=== PATIENT | male | born 2000 | race Caucasian/White ===

== ENCOUNTER 2018-08-25 12:02 | Outpatient (CLI) | payer OTHER, BC ==
--- NOTE | 2018-08-26 01:34 | XRAY Report ---
Reason: STRUCK IN BRIDGE OF NOSE WITH TENNIS RAQUET Procedure Date: 08/25/2018 Accession Number: [id number] / [id number] Procedure: XR - Facial Bones Limited CPT Code: FULL RESULT: EXAM: NASAL BONES RADIOGRAPHY EXAM DATE: 08/25/2018 12:52 PM. CLINICAL HISTORY: STRUCK IN BRIDGE OF NOSE WITH TENNIS RAQUET. COMPARISONS: None. TECHNIQUE: 3 views. FINDINGS: Bones: Normal. No fractures or bone lesions. Sinuses: Normal. No opacities or fluid levels. Other: Normal. No soft tissue swelling. IMPRESSION: Normal nasal bone radiography. [facility]
== END 2018-08-25 12:03 | disposition home or self-care (01) ==
LOC: DI 12:02
PROVIDERS: ATTEND Family Medicine
DX: S09.8XXA Other specified injuries of head, initial encounter (principal)
CPT/HCPCS: 70140